=== PATIENT | male | born 1935 | race Caucasian/White ===

== ENCOUNTER 2019-04-19 13:39 | Outpatient (CLI) | payer MEDICARE, OTHER ==
--- NOTE | 2019-04-19 15:31 | XRAY Report ---
Reason: PAIN IN UNSPECIFIED HIP Procedure Date: 04/19/2019 Accession Number: [id number] / [id number] Procedure: XR - Hips 2V BILAT CPT Code: FULL RESULT: EXAM: BILATERAL HIP RADIOGRAPHY EXAM DATE: 04/19/2019 02:09 PM. CLINICAL HISTORY: Pain in unspecified hip. COMPARISON: None. TECHNIQUE: 2 views each. FINDINGS: Bones: Normal. No fractures or bone lesion. Right Hip: Narrowing of the hip joint space with subchondral sclerosis and marginal osteophytosis, at least moderate degenerative disease. No dislocation. Left Hip: Joint space narrowing with subchondral sclerosis and subchondral cyst formation as well as osteophytosis, at least moderate degenerative changes. No subluxation. Soft Tissues: Vascular calcifications are noted right greater than left. IMPRESSION: Bilateral moderate degenerative changes. [facility]
== END 2019-04-19 13:40 | disposition home or self-care (01) ==
LOC: DI 13:39
PROVIDERS: ATTEND Family Medicine
DX: M16.0 Bilateral primary osteoarthritis of hip (principal)
CPT/HCPCS: 73521